=== PATIENT | male | born 1955 | race Caucasian/White ===

== ENCOUNTER 2021-12-22 11:54 | Emergency (ER) | payer MEDICARE, OTHER ==
[2021-12-22 13:48] LABS: BILIRUBIN NEGATIVE (NEGATIVE); BLOOD NEGATIVE Ery/uL (NEGATIVE); CLARITY CLEAR (CLEAR); COLOR YELLOW (YELLOW); GLUCOSE (U) NORMAL (NORMAL); LEUKOCYTES NEGATIVE Leu/uL (NEGATIVE); NITRITE NEGATIVE (NEGATIVE); PROTEIN NEGATIVE (NEGATIVE); UROBILINOGEN 0.2 mg/dL (0.2-1.0); pH 6.5 (5.0-9.0)
[2021-12-22 14:30] LABS: BASOPHIL 0.4 % (0-2); EOSINOPHIL 0.5 % (0-7); HCT 41.4 % (42.0-52.0); HGB 13.8 g/dl (13.2-18.0); LYMPHOCYTE 14.3 % (15-48); MCHC 33.3 g/dL (32.0-36.0); MCV 96.1 fL (78.0-100.0); MONOCYTE 3.3 % (0-12); MPV 9.4 fL (6.0-9.5); NEUTROPHIL 81.3 % (41-80); NRBC 0; PLT 301 K/uL (150-400); RBC 4.31 M/uL (4.70-6.00); RDW 14.1 % (11.5-14.0); WBC 9.1 K/uL (4.0-10.5)
[2021-12-22 14:53] LABS: ALBUMIN 3.2 g/dL (3.4-5.0); BILIRUBIN - TOTAL 0.5 mg/dL (0.2-1.0); BUN/CREAT RATIO (CALC) 24.7 RATIO; CREATININE 0.89 mg/dL (0.67-1.17); GLOBULIN (CALCULATION) 3.5 g/dL; POTASSIUM 4.1 mmol/L (3.5-5.1); TOTAL PROTEIN 6.7 g/dL (6.4-8.2)
[2021-12-22] MEDS ORDERED: CYCLOBENZAPRINE10 MG PO (15:18)
== END 2021-12-22 15:15 | disposition home or self-care (01) ==
LOC: FER 11:54
PROVIDERS: Nurse Practitioner Family
DX: S29.012A Strain of muscle and tendon of back wall of thorax, initial encounter (principal); Z88.5 Allergy status to narcotic agent; Z88.6 Allergy status to analgesic agent
CPT/HCPCS: 36415; 71101; 80053; 81003; 85025